=== PATIENT | female | born 1960 | race Caucasian/White ===

== ENCOUNTER → 2018-05-31 12:48 | Outpatient (CLI) | payer OTHER, SELFPAY ==
--- NOTE | 2018-05-31 | DI.MG.S_ITS ---
BILATERAL DIGITAL SCREENING MAMMOGRAM 3D/2D WITH CAD POST LUMPECTOMY: 05/31/2018 CLINICAL: Routine screening. Personal history of breast cancer. Comparison is made to exams dated: 04/15/2017 mammogram, 01/27/2017 mammogram, and 01/20/2017 mammogram - [facility]. The tissue of both breasts is extremely dense, which lowers the sensitivity of mammography. Current study was also evaluated with a Computer Aided Detection (CAD) system. There are post surgical changes with surgical clips in the right breast at 9 o'clock in the middle depth. There are new 0.4 cm grouped punctate calcifications in the right breast middle depth lateral region seen on the craniocaudal view only and noted a short distance posterior to the surgical site. There are new 0.4 cm linear calcifications in the left breast posterior depth lateral region seen on the craniocaudal view only. No other significant masses or calcifications are seen in either breast. IMPRESSION: INCOMPLETE: NEEDS ADDITIONAL IMAGING EVALUATION The new 0.4 cm grouped punctate calcifications in the right breast middle depth lateral region seen on the craniocaudal view only are indeterminate. Mediolateral and spot magnification views are recommended. The new 0.4 cm linear calcifications in the left breast posterior depth lateral region seen on the craniocaudal view only are indeterminate. Mediolateral and spot magnification views are recommended. This exam was interpreted at Station ID: [id number]. NOTE: For mammograms, a report in lay terms will be sent to the patient. Approximately 15% of breast malignancies will not be visualized mammographically. In the management of a palpable breast mass, a negative mammogram must not discourage biopsy of a clinically suspicious lesion. Electronically Signed By: Alex Benavides M.D. aty/:05/31/2018 15:11:50 copy to: SANYA GALLARDO copy to: CHINO HOFFMANN letter sent: Additional Imaging Needed ACR BI-RADS Category 0: Incomplete 3340F
== END ==
PROVIDERS: Family Provider Internal Medicine; PCP Internal Medicine; Visit Provider Internal Medicine Hematology & Oncology
DX: Z12.31 Encounter for screening mammogram for malignant neoplasm of breast (principal); Z85.3 Personal history of malignant neoplasm of breast
CPT/HCPCS: 77063; 77067

== ENCOUNTER → 2018-06-03 12:47 | Outpatient (CLI) | payer OTHER, SELFPAY ==
--- NOTE | 2018-06-03 12:51 | DI.MG.S_ITS ---
BILATERAL DIGITAL DIAGNOSTIC MAMMOGRAM 3D/2D WITH ADDITIONAL VIEWS: 06/03/2018 CLINICAL: Additional evaluation requested from prior study. Comparison is made to exams dated: 05/31/2018 mammogram, 04/15/2017 mammogram, and 03/16/2017 breast [facility]. The tissue of both breasts is extremely dense, which lowers the sensitivity of mammography. There are surgical clips in the right breast at 9 o'clock in the middle depth. There are 0.4 cm grouped punctate calcifications in the right breast middle depth lateral region seen on the craniocaudal view only. These are not significantly changed. There are 0.4 cm grouped linear punctate calcifications in the left breast posterior depth lateral region seen on the craniocaudal view only. These are not significantly changed. No other significant masses or calcifications are seen in either breast. IMPRESSION: PROBABLY BENIGN The 0.4 cm grouped punctate calcifications in the right breast middle depth lateral region seen on the craniocaudal view only are probably benign. A follow-up in 6 months are recommended. The 0.4 cm grouped linear punctate calcifications in the left breast posterior depth lateral region seen on the craniocaudal view only are probably benign. A follow-up in 6 months is recommended. The follow-up bilateral mammogram in 6 months is recommended to demonstrate stability with craniocaudal, mediolateral oblique, mediolateral, and spot magnifications views. This exam was interpreted at Station ID: [id number]. NOTE: For mammograms, a report in lay terms will be sent to the patient. Approximately 15% of breast malignancies will not be visualized mammographically. In the management of a palpable breast mass, a negative mammogram must not discourage biopsy of a clinically suspicious lesion. Electronically Signed By: Alex Benavides M.D. aty/:06/03/2018 17:13:28 copy to: Menedz [place] copy to: CHINO HOFFMANN letter sent: Followup Recommended ACR BI-RADS Category 3: Probably benign [id number]
== END ==
PROVIDERS: Family Provider Internal Medicine; PCP Internal Medicine; Visit Provider Internal Medicine Hematology & Oncology
DX: R92.1 Mammographic calcification found on diagnostic imaging of breast (principal); C50.911 Malignant neoplasm of unspecified site of right female breast
CPT/HCPCS: 77066; G0279

== ENCOUNTER → 2018-06-04 15:40 | Outpatient (CLI) | payer OTHER, SELFPAY ==
[2018-06-04 16:21] LABS: Add Manual Diff / Slide Review NO; Basophils Absolute Auto 0 /uL (0-100); Basophils Percent Auto 0.3 % (0-2); Eosinophils Absolute Auto 0 /uL (0-450); Hematocrit 41.6 % (36-46); Hemoglobin 13.7 g/dL (12.0-16.0); Lymphocytes Absolute Auto 1200 /uL (1100-4500); Lymphocytes Percent Auto 22.2 % (25-40); Mean Corpuscular Volume 84.8 fL (80-100); Monocytes Absolute Auto 400 /uL (0-900); Monocytes Percent Auto 7.6 % (3-14); Neutrophils Absolute Auto 3600 /uL (1500-7000); Neutrophils Percent Auto 68.9 % (50-75); Platelet Count 311 X10^3/uL (150-400); Red Blood Cell Count 4.91 X10^6/uL (4.0-5.2); Red Cell Distribution Width 13.5 % (11.6-14.8); White Blood Cell Count 5.3 X10^3/uL (4.5-11.0)
[2018-06-04 16:59] LABS: Alanine Aminotransferase 25 IU/L (9-52); Albumin 4.9 g/dL (3.5-5.0); Albumin Globulin Ratio 1.9 (1.0-2.8); Alkaline Phosphatase 65 U/L (38-126); Aspartate Aminotransferase 24 IU/L (14-36); Bilirubin Total 0.3 mg/dL (0.2-1.3); Blood Urea Nitrogen 14 mg/dL (7-17); Calcium 9.7 mg/dL (8.4-10.2); Carbon Dioxide 28 mmol/L (22-32); Chloride 101 mmol/L (98-107); Estimated Glomerular Filt Rate > 60.0 mL/min (>60); Globulin 2.6 g/dL (1.7-4.1); Glucose 85 mg/dL (70-100); HEMOLYSIS < 15 (0-50); Potassium 4.4 mmol/L (3.4-5.1); Sodium 139 mmol/L (137-145); Total Protein 7.5 g/dL (6.3-8.2)
== END ==
PROVIDERS: Family Provider Internal Medicine; PCP Internal Medicine; Visit Provider Nurse Practitioner Gerontology
DX: C50.911 Malignant neoplasm of unspecified site of right female breast (principal)
CPT/HCPCS: 36415; 80053; 85025

== ENCOUNTER → 2018-06-22 12:16 | Outpatient (CLI) | payer OTHER, SELFPAY ==
--- NOTE | 2018-06-22 12:18 | DI.MRI.S_ITS ---
BREAST MRI OF BOTH BREASTS: 06/22/2018 CLINICAL: History of right breast cancer status post lumpectomy. PROCEDURE: MR BREAST BI WO/W CON INDICATIONS: Patient is a 58-year-old woman with history of invasive ductal carcinoma of the right breast at 8:00 position anterior depth diagnosed by stereotactic biopsy on 02/04/2017. Subsequent breast MRI of 03/16/2017 demonstrated associated non-mass enhancement in the right breast at 8:00 position anterior depth. Patient subsequently underwent lumpectomy. A bilateral screening mammogram performed on 05/31/2018 reportedly identified 0.4 cm calcifications in the right breast middle depth lateral region and left breast posterior depth lateral region seen on the bilateral craniocaudal views only; these persisted on subsequent additional diagnostic views of 06/03/2018 and a six-month followup was subsequently recommended at that time. TECHNIQUE: The patient was placed prone in a dedicated breast imaging coil. Precontrast axial STIR and 3D FLASH without fat saturation sequences were obtained. Both before and after bolus injection of contrast, sequential 1-minute axial 3D FLASH with fat saturation sequences for 3 time points, with subtraction images and maximum intensity projections (MIP's) generated. Delayed sagittal FLASH images with fat saturation were also obtained. 20 cc of intravenous Prohance contrast was used for this exam. Computer-aided detection, including computer algorithm analysis of MRI image data for lesion detection and characterization, pharmacokinetic analysis, with further physician review for interpretation, was performed. COMPARISON: [facility], , ANKLE W FINDINGS: Image quality: There is severe susceptibility artifact that obscures the upper inner quadrant of the left breast on multiple sequences secondary to the patient's left chest port catheter, which also results in inadequate fat saturation on multiple sequences. There is mild background parenchymal enhancement. Right breast: There are postsurgical changes of prior lumpectomy within the lateral right breast with overlying lateral skin scarring and diffuse right breast skin thickening. Surgical clips within the lumpectomy result in susceptibility artifact that obscures adjacent anatomy. There is mild skin enhancement associated with skin thickening relative to the left breast, likely secondary to prior radiation therapy. There is a 0.4 cm oval circumscribed mass 5:00-6:00 position middle depth approximately 1-2 cm inferior to central to the nipple which demonstrates persistent enhancement kinetics and T2 hyperintensity on STIR imaging, and appears stable in size and appearance to comparison MRI of 04/02/17. This is medially adjacent to the lumpectomy site described above. There is a subtle area of mild [id number] in the central inferior right breast and middle depth near 6:00 position just medial to the lumpectomy site described above, which is difficult to measure but measures approximately 3.0 cm anteroposterior by 2.0 cm transverse by 1.5 cm craniocaudal. This enhancement demonstrates persistent contrast enhancement kinetics, is asymmetric to the left breast, and new from comparison MRI exam of 03/16/17. This area of non-mass enhancement may include the area of calcifications seen on comparison screening mammogram of 05/31/2018 and diagnostic mammogram of 06/03/2018. There is mild retroareolar ductal ectasia with T1 hyperintense signal within the ectatic ducts, consistent with proteinaceous or hemorrhagic debris. Left breast: Susceptibility artifact and failure of fat saturation artifact in the upper inner quadrant of the left breast impairs evaluation of underlying anatomy. Within this context, no suspicious masses or non-mass enhancement are identified. There is no convincing abnormality to correlate with the calcifications seen on comparison screening mammogram of 05/31/2018 and diagnostic mammogram of 06/03/2018. Abnormal signal in the upper inner quadrant of the left breast is thought artifactual. There is mild retroareolar ductal ectasia with T1 hyperintense signal within the ectatic ducts, consistent with proteinaceous or hemorrhagic debris. Miscellaneous: There is no axillary or internal mammary lymphadenopathy bilaterally. IMPRESSION: INCOMPLETE: NEEDS ADDITIONAL IMAGING EVALUATION Susceptibility artifact secondary to the patient's chest port catheter obscures the underlying anatomy of the upper inner left breast. Within this context: 1. Subtle 3.0 x 2.0 x 1.5 cm area of mild non-mass enhancement medially adjacent to the lumpectomy site in the lower right breast. This may represent background physiologic parenchymal enhancement secondary to postsurgical changes from prior lumpectomy and radiation therapy, but is asymmetric and new from prior comparison MRI exam of 03/16/17 and early ductal carcinoma in situ cannot be excluded. Recommend followup targeted diagnostic ultrasound for further evaluation. This area of contrast enhancement may warrant a followup MRI in 6 months or possible biopsy pending ultrasound results. 2. 0.4 cm oval mass in the right breast at 5:00-6:00 position middle depth is stable to comparison MRI of 03/16/17 and likely represents an intramammary lymph node. Consider evaluation of this area on the followup targeted diagnostic ultrasound recommended above. 3. The 0.4 cm calcifications in the right breast middle depth lateral region seen on the craniocaudal view only on recent comparison screening and diagnostic mammograms may be within the area of non-mass enhancement described above. No other area of enhancement is identified to correlate with these calcifications. The calcifications may also be so small as to be below the threshold for MRI detection at this time. The prior recommendation from diagnostic mamogram of 06/03/2018 for a follow-up mammogram in 6 months to demonstrate stability remains in force/recommended. 4. No convincing MRI abnormality to correlate with the 0.4 cm punctate calcifications in the left breast posterior depth lateral region seen on comparison screening mammogram of 05/31/2018 and diagnostic mammogram of 06/03/2018. However, the calcifications may also be too small and below the threshold for MRI detection at this time. The prior recommendation from diagnostic mamogram of 06/03/2018 for a follow-up mammogram in 6 months to demonstrate stability remains in force/recommended. These results and recommendations were discussed with the referring provider Dr. Cristóabl Selby by telephone by Dr. Arevalo at approximately 12:30 pm on 06/24/2018. BIRADS: 0. Incomplete; additional imaging needed/recommended. COMMENT: The imaging literature indicates that a negative contrast breast MRI examination has a high sensitivity and a moderate specificity for detecting and excluding invasive carcinomas to a detection threshold of 3-5 mm; nonetheless, appropriate clinical and mammographic follow-up are recommended. MRI is not sensitive for detecting DCIS (ductal carcinoma in situ) and may not detect large invasive neoplasms that show only minimal enhancement such as mucinous carcinoma. If there are suspicious calcifications or clinically worrisome palpable masses, then biopsy should still be considered. Invasive neoplasms can be hidden by co-existent and benign enhancement caused by mastitis, hormone therapy effects, radiation therapy, , and recent biopsy or surgery. False positive examinations can occur in a number of circumstances, including breasts that have recently been subject to invasive procedures and those that contain atypical ductal hyperplasia, hormonally stimulated glandular tissue, fat necrosis, or radial scars. Electronically Signed By: Franklin Arevalo M.D. ecl/:06/25/2018 11:46:39 copy to: Mendez [place] copy to: CHINO HOFFMANN letter sent: Additional Imaging Needed ACR BI-RADS Category 0: Incomplete [id number]
== END ==
PROVIDERS: PCP Internal Medicine; Visit Provider Internal Medicine Hematology & Oncology
DX: R92.8 Other abnormal and inconclusive findings on diagnostic imaging of breast (principal); R92.1 Mammographic calcification found on diagnostic imaging of breast; C50.511 Malignant neoplasm of lower-outer quadrant of right female breast; N63.14 Unspecified lump in the right breast, lower inner quadrant
CPT/HCPCS: 77049; A9579

== ENCOUNTER → 2018-06-30 07:41 | Outpatient (CLI) | payer OTHER, SELFPAY ==
--- NOTE | 2018-06-30 07:42 | DI.US.S_ITS ---
LIMITED ULTRASOUND OF RIGHT BREAST: 06/30/2018 CLINICAL: Patient returns today to evaluate abnormalities in the right breast found on MRI. Comparison is made to exams dated: 06/22/2018 breast MRI, 06/03/2018 mammogram, 05/31/2018 mammogram, 04/15/2017 localization, 04/15/2017 mammogram, and 03/16/2017 breast MRI - [facility]. Real-time and Doppler ultrasound of the right breast retroareolar, lower inner, upper outer, and and lower outer quadrants regions were performed. Nuñez scale images of the real-time examination were reviewed. Targeted ultrasound of the retroareolar, upper outer, lower outer, and lower inner right breast were performed. There is postsurgical scarring of the lower outer right breast with a 3 mm calcification identified. There is no abnormal vascularity of the scar tissue on Doppler ultrasound. There is no other underlying mass or abnormality seen in the imaged regions on targeted ultrasound. Specifically, there is no ultrasound correlate for the non-mass enhancement in the lower right breast and no correlate for the 0.4 cm oval mass in the right breast at 5:00-6:00 position described in the comparison MRI report of 06/22/18, and no ultrasound correlate for the calcifications in the lateral right breast seen on comparison mammograms of 05/31/2018 and 06/03/2018. IMPRESSION: PROBABLY BENIGN 1) No suspicious masses or abnormalities seen on ultrasound of the retroareolar, upper outer, lower outer, and lower inner right breast. 2) No ultrasound correlate for the non-mass enhancement in the lower right breast described in the comparison MRI report of 06/22/18. This non-mass enhancement likely represents post-surgical and post-therapeutic changes from prior lumpectomy and radiation therapy, with possible residual malignancy thought less likely. A follow-up breast MRI in 6 months is recommended to demonstrate stability. 3) No correlate for the 0.4 cm oval mass in the right breast at 5:00-6:00 position described in the comparison MRI report of 06/22/18 but which was stable to comparison MRI of 03/16/17 and likely represents an intramammary lymph node. 4) No ultrasound correlate for the punctate calcifications in the lateral right breast seen on comparison mammograms of 05/31/2018 and 06/03/2018. The prior recommendation from diagnostic mammogram of 06/03/2018 for a follow-up diagnostic mammogram in 6 months to demonstrate stability remains recommended. These results and recommendations were discussed with the patient at the time of the exam by Dr. Arevalo in person. The patient was advised to monitor her breasts and to return sooner for re-evaluation should she feel anything grow or change. This exam was interpreted at Station ID: [id number]. Electronically Signed By: Franklin Arevalo M.D. ecl/:06/30/2018 15:16:30 copy to: Mendez [place] copy to: CHINO HOFFMANN letter sent: Followup Recommended Ultrasound BI-RADS: 3 Probably benign
== END ==
PROVIDERS: Family Provider Internal Medicine; PCP Internal Medicine; Visit Provider Internal Medicine Hematology & Oncology
DX: R92.8 Other abnormal and inconclusive findings on diagnostic imaging of breast (principal)
CPT/HCPCS: 76642

== ENCOUNTER 2018-07-08 06:46 | Day surgery (SDC) | payer OTHER, SELFPAY ==
[2018-07-08] VITALS (7 sets, daily range): BP systolic 104–135; BP diastolic 54–80; PULSE 70–101; RESP 7–20; TEMP 36.4–37; O2SAT 95–99; BMI 21.7
[2018-07-08] MEDS: SODIUM CHLORIDE 0.9% 1,000 ML 100 ML IV (07:15)
[2018-07-08] MEDS: SCOPOLAMINE 1 PATCH TOP (08:20)
[2018-07-08] MEDS: ONDANSETRON 4 MG/2 ML INJ IV (08:25)
--- NOTE | 2018-07-08 08:32 | PM.HP.1 ---
History of Present Illness Date Patient Seen: 07/08/18 Time Patient Seen: 08:32 Chief complaint: colonoscopy [id number] Narrative: Wonderful 58-year-old lady who is well known to me from prior visits. She presents today for screening colonoscopy. She has recently completed treatment for invasive breast cancer. It has been approximately 10 years since her last colonoscopy. She denies any new problems or symptoms related to the function of her GI tract. She needs a colonoscopy as part of her health maintenance program. Patient History Medical History Anxiety (Acute) Chronic neck and back pain (Acute) Osteoporosis (Acute) PTSD (post-traumatic stress disorder) (Acute) Peripheral neuropathy (Acute) Port-A-Cath in place (Acute) Vitamin D deficiency (Acute) Surgical History History of lumpectomy of right breast (Acute) History of partial mastectomy of right breast (Acute) Social History household members: spouse Smoking Status: Never smoker alcohol intake: current Family & Social History Social History: household members spouse Tobacco & Substance use: Smoking Status Never smoker alcohol intake current Substance Use Type does not use Meds Home Medications Medication Instructions Recorded Confirmed Type cholecalciferol (vitamin D3) 1 tab PO QDAY #0 02/20/17 07/08/18 History [Vitamin D3] venlafaxine [Effexor XR] 75 mg PO QDAY #0 03/13/17 07/08/18 History alendronate [Fosamax] 70 mg PO QWEEK 11/12/17 07/08/18 History letrozole [Femara] See Rx Instructions .ROUTE .COMPLEX 11/12/17 07/08/18 History Darell/Calcium 1 cap PO DAILY 06/04/18 07/08/18 History Tumeric 1 cap PO BID 06/04/18 07/08/18 History Allergies Allergy/AdvReac Type Severity Reaction Status Date / Time No Known Drug Allergies Allergy Verified 07/08/18 07:20 Review of Systems Review of Systems All systems reviewed & are unremarkable except as noted in HPI and below Exam Vital Signs (past 8 hours): - 07/08/18 07:24 Temperature 98.2 F Pulse Rate 101 H Respiratory Rate 20 Blood Pressure 135/80 Pulse Oximetry 99 Oxygen Delivery Method Room Air Narrative Exam Narrative: Very pleasant well-nourished well-developed lady in no obvious distress HEENT: Normocephalic and atraumatic, pupils equal round reactive to light accommodation with anicteric sclera Lungs: Clear to auscultation bilaterally Heart: Regular rate and rhythm without murmur rub or gallop Abdomen: Soft, nontender, active bowel sounds Extremities: Warm and well perfused without edema Assessment & Plan Assessment & Plan narrative: Wonderful 58-year-old lady here for screening colonoscopy. We discussed risks and benefits of the procedure the patient expressed a desire to complete it today.
[2018-07-08] MEDS: MIDAZOLAM 5 MG/5 ML VIAL IV (08:48)
[2018-07-08] MEDS: fentaNYL 250 MCG/5 ML INJ IV (08:49)
--- NOTE | 2018-07-08 09:01 | P.OP_ITS ---
Operative Date/Time/Diagnoses Date of procedure: 07/08/18 Time of procedure: 08:57 Pre-op diagnosis: Screening Post-op diagnosis: same Procedure & Clinicians Procedure: Colonoscopy to the cecum Same procedure as scheduled: Yes Indications: Last colonoscopy 10 years ago Surgeon: Nichole Borrego Click Yes if Unassisted: Yes Anesthesia Type: Sedation (Versed 10 mg; fentanyl 350 mcg) Operative Notes Findings: 1. Excellent prep 2. No polyps or mass lesions 3. No AV malformations 4. Very minimal diverticulosis with just a couple of very small pockets in the sigmoid region 5. Grade 1-2 internal hemorrhoids 6. Normal colonoscopy for age Closure Type: not applicable Specimen(s): none sent Procedure in detail: After obtaining informed consent, the patient was brought to the GI suite and placed in the left lateral decubitus position on the examination table. After placement of appropriate monitors, the patient was given incremental doses of Versed and Fentanyl until an appropriate level of sedation was achieved. A time out was held per SCOAP protocol. A digital rectal examination was performed and did not reveal any masses or obstructing lesions. The colonoscope was gently passed into the patient's anus and the entire colon navigated to the level of the cecum with minimal difficulty . Once in the cecum, the scope was withdrawn being sure to go before and beyond all mucosal folds and prominences and get an excellent examination. The findings are noted above. At the level of the rectal vault, the scope was retroflexed and the internal anal canal was examined. The scope was straightened and air aspirated from the colon. The instrument was removed from the patient's body and the procedure was concluded. The patient was allowed to awaken from sedation without difficulty and taken to the post-anesthesia care unit in good condition. Total sedation time was 24 min Total withdrawal time was 8 min Complications: none Condition: stable Disposition: PACU Plan for aftercare: 1. Discharge to home 2. Plan for next colonoscopy in 10 years or as clinically indicated
--- NOTE | 2018-07-08 09:06 | SUR.PHASEI ---
Stable pacu stay.
--- NOTE | 2018-07-08 09:11 | SUR.PHASEI ---
No nausea, taking ice and sips of water.
== END 2018-07-08 09:38 | disposition home or self-care (01) ==
PROVIDERS: Family Provider Internal Medicine; PCP Internal Medicine; Visit Provider Surgery
PROC: 0DJD8ZZ Inspection of Lower Intestinal Tract, Via Natural or Artificial Opening Endoscopic (ICD-10-PCS; CPT 45378; principal; 2018-07-08 07:45)
DX: Z12.11 Encounter for screening for malignant neoplasm of colon (principal); K57.30 Diverticulosis of large intestine without perforation or abscess without bleeding; K64.1 Second degree hemorrhoids; F41.9 Anxiety disorder, unspecified; G62.9 Polyneuropathy, unspecified; E55.9 Vitamin D deficiency, unspecified
CPT/HCPCS: 45378; 99152; 99153; J2250; J2405; J3010

== ENCOUNTER 2018-07-28 06:43 | Day surgery (SDC) | payer OTHER, SELFPAY ==
[2018-06-07 12:20] VITALS: BMI 24.0
[2018-07-28] VITALS (8 sets, daily range): BP systolic 88–143; BP diastolic 49–82; PULSE 61–81; RESP 12–16; TEMP 36.4–36.5; O2SAT 96–100; BMI 24.0
--- NOTE | 2018-07-28 07:41 | SUR.OPER ---
Supine on padded OR bed, head on pillow, arms secured on padded arm boards at <90 degrees abduction, legs uncrossed, safety belt at thigh, tape over blanket over lower legs.
[2018-07-28] MEDS: LACTATED RINGERS 1,000 ML 42 ML IV (07:50)
--- NOTE | 2018-07-28 08:17 | PM.HP.1 ---
History of Present Illness Date Patient Seen: 07/28/18 Time Patient Seen: 08:17 Chief complaint: [id number] Narrative: Qi is a very pleasant lady who presents today for for PowerPort removal. She was diagnosed with breast cancer in 2017 and has completed all of her treatment. Her port is no longer needed. She reports she feels well today. She denies any new problems or symptoms. Patient History Medical History Anxiety (Acute) Chronic neck and back pain (Acute) Osteoporosis (Acute) PTSD (post-traumatic stress disorder) (Acute) Peripheral neuropathy (Acute) Port-A-Cath in place (Acute) Vitamin D deficiency (Acute) Surgical History History of lumpectomy of right breast (Acute) History of partial mastectomy of right breast (Acute) Social History household members: spouse Smoking Status: Never smoker alcohol intake: current Family & Social History Social History: household members spouse Tobacco & Substance use: Smoking Status Never smoker alcohol intake current Substance Use Type does not use Meds Home Medications Medication Instructions Recorded Confirmed Type cholecalciferol (vitamin D3) 1 tab PO QDAY #0 02/20/17 07/08/18 History [Vitamin D3] venlafaxine [Effexor XR] 75 mg PO QDAY #0 03/13/17 07/28/18 History alendronate [Fosamax] 70 mg PO QWEEK 11/12/17 07/28/18 History letrozole [Femara] See Rx Instructions .ROUTE .COMPLEX 11/12/17 07/28/18 History Darell/Calcium 1 cap PO DAILY 06/04/18 07/08/18 History Tumeric 1 cap PO BID 06/04/18 07/08/18 History Allergies Allergy/AdvReac Type Severity Reaction Status Date / Time No Known Drug Allergies Allergy Verified 07/08/18 07:20 Review of Systems Review of Systems All systems reviewed & are unremarkable except as noted in HPI and below Exam Vital Signs (past 8 hours): - 07/28/18 07:21 Temperature 97.5 F L Pulse Rate 81 Respiratory Rate 15 Blood Pressure 143/82 H Pulse Oximetry 100 Oxygen Delivery Method Room Air Narrative Exam Narrative: Pleasant and well-appearing lady in no distress HEENT: Normocephalic and atraumatic, pupils equal round reactive to light accommodation with anicteric sclera Lungs: Clear to auscultation bilaterally Heart: Regular rate and rhythm without murmur rub or gallop. The power port is in the left chest wall and without erythema or drainage of the incision. Abdomen: Soft, nontender, active bowel sounds Extremities: Warm well perfused and without edema Assessment & Plan Assessment & Plan narrative: Wonderful 58-year-old lady who has completed all of her treatment for breast cancer. She continues on Femara and is doing quite well. We discussed the risks and benefits of PowerPort removal and the patient expressed a desire to have the procedure today.
[2018-07-28] MEDS: BUPIVACAINE 0.5% (PF) VIAL 30 ML INJ (08:31)
[2018-07-28] MEDS: LIDOCAINE 1% W/EPI INJ 20 ML INJ (08:31)
--- NOTE | 2018-07-28 08:43 | PM.OP.1 ---
Operative Date/Time/Diagnoses Date of procedure: 07/28/18 Time of procedure: 08:43 Pre-op diagnosis: Port no longer required. Chemotherapy completed Post-op diagnosis: same Procedure & Clinicians Procedure: Power port removal Same procedure as scheduled: Yes Surgeon: Nichole Borrego Anesthesia Type: General (Dr. Cid) Operative Notes Findings: Power port in good repair Closure Type: primary Specimen(s): none sent Procedure in detail: After obtaining informed consent, the patient was brought to the operating room and placed in the supine position on the operating table. Following successful induction of IV sedation with monitored anesthesia care, the chest was prepped and draped in the standard surgical fashion. A timeout was held per WVOAP protocol. Following infiltration with local anesthetic to create a field block, the existing healed incision was repeated. This was carried down through the skin and subcutaneous tissue to reveal the tubing of the implanted central venous device. The tubing was carefully dissected free from surrounding structures and delivered into the field. Pressure was held at the deltopectoral groove to prevent air embolus and backbleeding. After 5 minutes time, we continued with dissection of the remaining portion of the port. The reservoir itself remained in the pocket and has been incorporated into the tissue. This was carefully dissected free with judicious use of a scalpel. It was delivered into the field as a single piece with tubing attached. The incision was checked for hemostasis and irrigated with warm saline solution. Once we were satisfied that all was clean and dry, it was closed in 2 layers with Vicryl Monocryl sutures. Dermabond was applied to the skin incision. All sponge, needle, and instrument counts were correct at the conclusion of the case. The patient was allowed to awaken from sedation without difficulty and taken to the post anesthesia care unit in good condition. Complications: none Condition: stable Disposition: PACU Plan for aftercare: 1. Discharge to home 2. Follow up as previously scheduled
== END 2018-07-28 09:33 ==
LOC: OR 06:44
PROVIDERS: Family Provider Internal Medicine; PCP Internal Medicine; Visit Provider Surgery
PROC: (CPT 36590; principal; 2018-07-28 07:45)
DX: Z45.2 Encounter for adjustment and management of vascular access device (principal); Z85.3 Personal history of malignant neoplasm of breast; F41.9 Anxiety disorder, unspecified; G62.9 Polyneuropathy, unspecified; E55.9 Vitamin D deficiency, unspecified; M81.0 Age-related osteoporosis without current pathological fracture
CPT/HCPCS: 36590; J1100; J2704; J3010

== ENCOUNTER → 2018-11-25 10:21 | Outpatient (CLI) | payer OTHER, SELFPAY ==
--- NOTE | 2018-11-25 | DI.US.S_ITS ---
PROCEDURE: US THYROID INDICATIONS: NONTOXIC MULTINODULAR GOITER TECHNIQUE: Real-time scanning was performed of the thyroid gland, with image documentation. COMPARISON: [facility], US, THYROID, 07/23/2017, 10:24. FINDINGS: Right: Thyroid lobe measures 5.2 x 1.6 x 1.8 cm, and is homogeneous in echotexture. Left: Thyroid lobe measures 5.3 x 1.5 x 2.1 cm, and is homogenous in echotexture. Isthmus: 2.0 mm thick. Nodule number: 1 Location: Right superior Size: Unchanged at 1.0 x 0.6 x 0.8 cm. Composition: Solid Echogenicity: Hypoechoic Shape: wider than tall. Margins: Smooth Echogenic foci: Echogenic punctate foci Total points: 7 ACR TI-RADS category: Highly suspicious Nodule number: 2 Location: Right inferior Size: Unchanged at 0.9 x 0.7 x 0.9 cm. Composition: Solid Echogenicity: Hypoechoic Shape: wider than tall. Margins: Smooth Echogenic foci: Internal punctate foci Total points: 7 ACR TI-RADS category: Highly suspicious Nodule number: 3 Location: Left mid Size: Unchanged 1.5 x 0.5 x 0.5 cm. Composition: Cystic Echogenicity: Anechoic Shape: wider than tall. Margins: Smooth Echogenic foci: None Total points: 0 ACR TI-RADS category: Benign Nodule number: 4 Location: Left mid Size: Unchanged at 0.8 x 0.6 x 0.7 cm. Composition: Solid Echogenicity: Hypoechoic Shape: wider than tall. Margins: Smooth Echogenic foci: None Total points: 4 ACR TI-RADS category: Moderately suspicious IMPRESSION: Stable appearance of bilateral thyroid nodules. Recommend continued followup ultrasound as detailed below. ACR TI-RADS definitions and recommendations: TI-RADS 1 (benign): 0 points. FNA not needed. TI-RADS 2 (not suspicious): 2 points. FNA not needed. TI-RADS 3 (mildly suspicious): 3 points. * FNA if 2.5 cm or larger, follow up if 1.5 cm or larger (at 1, 3, and 5 years). TI-RADS 4 (moderately suspicious): 4-6 points. * FNA if 1.5 cm or larger, follow up if 1 cm or larger (at 1, 2, 3, and 5 years). TI-RADS 5 (highly suspicious): 7 points or more. * FNA if 1 cm or larger, follow up if 0.5 cm or larger (every year for 5 years). Dictated by: Prakash BABB Interpreted: Demarcus León MD on 11/25/2018 at 12:06 Approved by: Demarcus León M.D. on 11/25/2018 at 14:17
== END ==
PROVIDERS: Family Provider Internal Medicine; PCP Internal Medicine; Referring Provider Internal Medicine Hematology & Oncology; Visit Provider Internal Medicine
DX: E04.2 Nontoxic multinodular goiter (principal)
CPT/HCPCS: 76536

== ENCOUNTER 2019-01-11 10:24 | Day surgery (SDC) | payer OTHER, SELFPAY ==
[2019-01-11 10:55] VITALS: BP 127/70; PULSE 88; RESP 15; TEMP 36.7; O2SAT 99; BMI 22.1
[2019-01-11] MEDS: PROPARACAINE 0.5% OPHTH SOL 2 DROPS EYE-OP (11:05)
[2019-01-11] MEDS: CATARACT EYE COMPOUND (10 DROPS/SYRINGE) 3 DROPS EYE-OP (11:08)
--- NOTE | 2019-01-11 12:04 | PM.PREOP ---
Pre-operative Note Interval Note History & Physical reviewed/Exam performed by Physician: No Changes to H&P: No
--- NOTE | 2019-01-11 12:04 | PM.OP.1 ---
Operative Date/Time/Diagnoses Pre-op diagnosis: Nuclear cataract right eye Procedure & Clinicians Procedure: Cataract Surgery Same procedure as scheduled: Yes Surgeon: Cosme Mcelroy Anesthesia Type: MAC +/- and Sedation Operative Notes Procedure in detail: Patient brought to the operating suite. Tetracaine drops placed in the right eye. Patient was prepped and draped in sterile manner. Wire lid speculum was placed in the eye. Betadine drops were placed on the eye. This was irrigated. Lidocaine jelly was placed on the eye. A paracentesis port was created with a side-port blade. 0.1 mL 1% preservative free lidocaine was injected into the anterior chamber. The anterior chamber was deepened with viscoelastic. 2.6 mm keratome was used to create a temporal clear corneal incision. Cystotome and Utrata forceps were used to create continuous tear capsulorrhexis. Balanced salt solution was used to hydro dissect the nucleus. The phacoemulsification handpiece was inserted and the nucleus was removed using the stop and chop technique. The irrigation aspiration handpiece was inserted and the remaining cortex was removed. Anterior chamber was deepened with viscoelastic. An Nixon ZCB00 intraocular lens with a power of 30.0 was injected into the capsular bag. Irrigation aspiration handpiece was inserted and the remaining viscoelastic was removed. Incision was hydrated with balanced salt solution and found to be leak free with pressure with Weck-Rachna sponges. 0.1 mL Vigamox injected anterior chamber. 0.3 mL Kenalog 10 mg was injected subconjunctivally. Lid speculum was removed. The patient left the operating room in excellent condition. Complications: none Post-operative Condition: stable Disposition: same day surgery
[2019-01-11] MEDS: MOXIFLOXACIN INJ 5 MG/ML VIAL EYE-OP (12:18)
[2019-01-11] MEDS: PHENYLEPHRINE/LIDOCAINE VIAL (OR) 0.2 ML EYE-OP (12:18)
[2019-01-11] MEDS: CHONDROIDTIN/SOD HYALURONATE 1.05 ML SYRINGE INTRAOCULA (12:19)
[2019-01-11] MEDS: TRIAMCINOLONE 50 MG/5 ML VIAL INJ (12:19)
[2019-01-11] MEDS: TETRACAINE 0.5% OPHTH DROPS 4 ML 2 DROPS EYE-OP (12:19)
[2019-01-11] MEDS: LIDOCAINE JELLY 2% 5 ML 1 APPLIC TOP (12:19)
[2019-01-11] MEDS: BALANCED SALT IRRIG SOLN NO.2 500 ML, EPINEPHrine 1 MG IRR (12:20)
[2019-01-11 12:35] VITALS: BP 114/75; PULSE 77; RESP 15; TEMP 36.8; O2SAT 99
== END 2019-01-11 12:46 | disposition home or self-care (01) ==
LOC: OR 10:25
PROVIDERS: Family Provider Internal Medicine; PCP Internal Medicine; Visit Provider Ophthalmology
PROC: (CPT 66984; principal; 2019-01-11 12:15)
DX: H25.11 Age-related nuclear cataract, right eye (principal); F41.9 Anxiety disorder, unspecified
CPT/HCPCS: 66984; J0171; J2250; J3010; J3301

== ENCOUNTER 2019-01-25 06:58 | Day surgery (SDC) | payer OTHER, SELFPAY ==
[2019-01-25] MEDS: PROPARACAINE 0.5% OPHTH SOL 2 DROPS EYE-OP (07:38)
[2019-01-25] MEDS: CATARACT EYE COMPOUND (10 DROPS/SYRINGE) 3 DROPS EYE-OP ×3 (07:39→07:55)
[2019-01-25 07:46] VITALS: BP 120/73; PULSE 77; RESP 16; TEMP 36.6; O2SAT 98; BMI 22.1
--- NOTE | 2019-01-25 07:59 | PM.PREOP ---
Pre-operative Note Interval Note History & Physical reviewed/Exam performed by Physician: No Changes to H&P: No
--- NOTE | 2019-01-25 07:59 | PM.OP.1 ---
Operative Date/Time/Diagnoses Pre-op diagnosis: Nuclear Cataract Left eye Post-op diagnosis: same Procedure & Clinicians Surgeon: Cosme Mcelroy Anesthesia Type: MAC +/- and Sedation Operative Notes Procedure in detail: Patient brought to the operating suite. Tetracaine drops placed in the left eye. Patient was prepped and draped in sterile manner. Wire lid speculum was placed in the eye. Betadine drops were placed on the eye. This was irrigated. Lidocaine jelly was placed on the eye. A paracentesis port was created with a side-port blade. 0.1 mL 1% preservative free lidocaine was injected into the anterior chamber. The anterior chamber was deepened with viscoelastic. 2.6 mm keratome was used to create a temporal clear corneal incision. Cystotome and Utrata forceps were used to create continuous tear capsulorrhexis. Balanced salt solution was used to hydro dissect the nucleus. The phacoemulsification handpiece was inserted and the nucleus was removed using the stop and chop technique. The irrigation aspiration handpiece was inserted and the remaining cortex was removed. Anterior chamber was deepened with viscoelastic. An Nixon ZCB00 intraocular lens with a power of 29.5 was injected into the capsular bag. Irrigation aspiration handpiece was inserted and the remaining viscoelastic was removed. Incision was hydrated with balanced salt solution and found to be leak free with pressure with Weck-Rachna sponges. 0.1 mL Vigamox injected anterior chamber. 0.3 mL Kenalog 10 mg was injected subconjunctivally. Lid speculum was removed. The patient left the operating room in excellent condition. Complications: none Post-operative Condition: stable Disposition: same day surgery
[2019-01-25] MEDS: MOXIFLOXACIN INJ 5 MG/ML VIAL EYE-OP (08:13)
[2019-01-25] MEDS: BALANCED SALT IRRIG SOLN NO.2 500 ML, EPINEPHrine 1 MG IRR (08:14)
[2019-01-25] MEDS: TETRACAINE 0.5% OPHTH DROPS 4 ML 2 DROPS EYE-OP (08:14)
[2019-01-25] MEDS: CHONDROIDTIN/SOD HYALURONATE 1.05 ML SYRINGE INTRAOCULA (08:14)
[2019-01-25] MEDS: LIDOCAINE JELLY 2% 5 ML 1 APPLIC TOP (08:14)
[2019-01-25] MEDS: TRIAMCINOLONE 50 MG/5 ML VIAL INJ (08:14)
[2019-01-25] MEDS: PHENYLEPHRINE/LIDOCAINE VIAL (OR) 0.2 ML EYE-OP (08:15)
[2019-01-25 08:25] VITALS: BP 118/69; PULSE 70; RESP 12; TEMP 37; O2SAT 99
== END 2019-01-25 08:35 | disposition home or self-care (01) ==
LOC: OR 06:58
PROVIDERS: Family Provider Internal Medicine; PCP Internal Medicine; Visit Provider Ophthalmology
PROC: (CPT 66984; principal; 2019-01-25 08:15)
DX: H25.12 Age-related nuclear cataract, left eye (principal)
CPT/HCPCS: 66984; J0171; J2250; J3010; J3301

== ENCOUNTER → 2019-02-02 10:14 | Outpatient (CLI) | payer OTHER, SELFPAY | PROVIDERS: PCP Internal Medicine; Visit Provider Internal Medicine | DX: M81.0 Age-related osteoporosis without current pathological fracture (principal); Z78.0 Asymptomatic menopausal state; Z85.3 Personal history of malignant neoplasm of breast | CPT/HCPCS: 77080 ==

== ENCOUNTER → 2019-04-06 14:42 | Outpatient (CLI) | payer OTHER, SELFPAY ==
--- NOTE | 2019-04-06 14:43 | DI.MG.S_ITS ---
BILATERAL DIGITAL DIAGNOSTIC MAMMOGRAM 3D/2D: 04/06/2019 CLINICAL: Patient returns for a 6 month follow up of bilateral breasts. Patient also reports new onset of lateral right breast pain for three weeks without nipple discharge, skin changes, or palpable masses. Comparison is made to exams dated: 06/03/2018 mammogram, 04/15/2017 mammogram, and 01/20/2017 mammogram - [facility]. The tissue of both breasts is extremely dense, which lowers the sensitivity of mammography. There are surgical clips in the right breast at 9 o'clock in the middle depth. There are 0.4 cm grouped punctate calcifications in the right breast middle depth lateral region seen on the craniocaudal view only. These are less prominent. There are 0.4 cm grouped linear punctate calcifications in the left breast posterior depth lateral region seen on the craniocaudal view only. These are less prominent. No other significant masses or calcifications are seen in either breast. IMPRESSION: INCOMPLETE: NEEDS ADDITIONAL IMAGING EVALUATION The 0.4 cm grouped punctate calcifications in the right breast middle depth lateral region seen on the craniocaudal view only are probably benign. A follow-up in 6 months is recommended to document continued stability. The 0.4 cm grouped linear punctate calcifications in the left breast posterior depth lateral region seen on the craniocaudal view only are probably benign. A follow-up in 6 months is recommended to document continued stability. There is no abnormality seen in the right breast to correspond with the area of clinical concern and pain, however, ultrasound is recommended. This will be scheduled for a later date as an ultrasound appointment could not be performed today. Additionally, the patient is now due for follow up breast MRI for previously described subtle area of non-mass enhancement medial to lumpectomy site in the lower right breast and 4mm oval mass in the lower right breast 5-6 o'clock position middle depth, both of which had no sonographic correlate. This exam was interpreted at Station ID: [id number]. NOTE: For mammograms, a report in lay terms will be sent to the patient. Approximately 15% of breast malignancies will not be visualized mammographically. In the management of a palpable breast mass, a negative mammogram must not discourage biopsy of a clinically suspicious lesion. Electronically Signed By: Alex brooksy/:04/07/2019 09:40:35 Entry: chuck - 04/07/2019 09:40:35 copy to: Mendez [place] copy to: CHINO HOFFMANN letter sent: Need Ultrasound ACR BI-RADS Category 0: Incomplete 3340F
== END ==
PROVIDERS: PCP Internal Medicine; Visit Provider Internal Medicine Hematology & Oncology
DX: R92.8 Other abnormal and inconclusive findings on diagnostic imaging of breast (principal); R92.1 Mammographic calcification found on diagnostic imaging of breast; C50.911 Malignant neoplasm of unspecified site of right female breast; N64.4 Mastodynia
CPT/HCPCS: 77066; G0279

== ENCOUNTER → 2019-04-21 14:06 | Outpatient (CLI) | payer OTHER, SELFPAY ==
--- NOTE | 2019-04-21 14:07 | DI.US.S_ITS ---
LIMITED ULTRASOUND OF RIGHT BREAST: 04/21/2019 CLINICAL: Focal lateral right breast pain. Comparison is made to exams dated: 04/06/2019 mammogram, 06/30/2018 ultrasound, 06/22/2018 breast MRI, 06/03/2018 mammogram, 05/31/2018 mammogram, and 04/15/2017 [facility]. Color flow and real-time ultrasound of the right breast 12-9 o'clock region were performed. Nuñez scale images of the real-time examination were reviewed. Targeted ultrasound was performed in the region of the patient's reported focal lateral right breast pain. No underlying breast mass or abnormality is identified. There is redemonstrated avascular postsurgical scarring of the inferior right breast greatest near the 8:00 position, which remains stable in appearance to prior comparison ultrasound of 06/30/18. IMPRESSION: PROBABLY BENIGN 1) No ultrasound findings to explain patient's reported focal lateral right breast pain. Recommend clinical follow-up for further evaluation and management of the patient's reported symptoms. 2) Redemonstrated avascular postsurgical scarring of the inferior right breast greatest near the 8:00 position, which remains stable in appearance to prior comparison ultrasound of 06/30/18. 3) Please see seperately dictated diagnostic mammogram report of 04/06/19 and breast MRI report of 06/22/18 for mammography and MRI follow-up recommendations, which remain recommended. The patient is also advised to monitor her breasts and to return sooner for re-evaluation should she feel anything grow or change. This exam was interpreted at Station ID: [id number]. Electronically Signed By: Franklin Arevalo M.D. ecl/:04/21/2019 19:48:21 copy to: Mendez [place] copy to: CHINO HOFFMANN letter sent: Followup Recommended Ultrasound BI-RADS: 3 Probably benign
== END ==
PROVIDERS: PCP Internal Medicine; Visit Provider Internal Medicine Hematology & Oncology
DX: R92.8 Other abnormal and inconclusive findings on diagnostic imaging of breast (principal); N64.4 Mastodynia; C50.911 Malignant neoplasm of unspecified site of right female breast
CPT/HCPCS: 76642

== ENCOUNTER → 2019-05-30 10:29 | Outpatient (CLI) | payer OTHER, SELFPAY ==
[2019-05-30 11:40] LABS: Blood Urea Nitrogen 14 mg/dL (7-17); Estimated Glomerular Filt Rate > 60.0 mL/min (>60)
== END ==
PROVIDERS: PCP Internal Medicine; Visit Provider Internal Medicine
DX: M61.00 Myositis ossificans traumatica, unspecified site (principal)
CPT/HCPCS: 36415; 82565; 84520

== ENCOUNTER → 2019-06-28 09:13 | Outpatient (CLI) | payer OTHER, SELFPAY ==
[2019-06-28 09:31] VITALS: BP 139/79; PULSE 82; RESP 16; TEMP 36.8; O2SAT 96
[2019-06-28] MEDS: ZOLEDRONIC ACID 5 MG in SODIUM CHLORIDE 0.9% 100 ML 318.75 ML IV (09:37)
== END ==
PROVIDERS: PCP Internal Medicine; Referring Provider Internal Medicine; Visit Provider Internal Medicine
DX: M81.0 Age-related osteoporosis without current pathological fracture (principal)
CPT/HCPCS: 96365; J3489

== ENCOUNTER → 2019-07-25 13:41 | Outpatient (CLI) | payer OTHER, SELFPAY ==
--- NOTE | 2019-07-25 13:42 | DI.MRI.S_ITS ---
BREAST MRI OF BOTH BREASTS- POST LUMPECTOMY: 07/25/2019 CLINICAL: Right breast cancer. PROCEDURE: MR BREAST BI WO/W CON INDICATIONS: breast cancer, abnormal breast MRI 06/2018 TECHNIQUE: The patient was placed prone in a dedicated breast imaging coil. Precontrast axial STIR and 3D FLASH without fat saturation sequences were obtained. Both before and after bolus injection of contrast, sequential 1-minute axial 3D FLASH with fat saturation sequences for 3 time points, with subtraction images and maximum intensity projections (MIP's) generated. Delayed sagittal FLASH images with fat saturation were also obtained. Computer-aided detection, including computer algorithm analysis of MRI image data for lesion detection and characterization, pharmacokinetic analysis, with further physician review for interpretation, was performed. CONTRAST: 20 cc IV Dotarem gadolinium contrast. COMPARISON: [facility], , BILATERAL BREAST W FINDINGS: Image quality: Excellent. There is mild background parenchymal enhancement. Right breast: Susceptibility artifact related to multiple surgical clips in the right anterolateral breast and right axilla. Subtle enhancement medial to the surgical clips in the right inferior lateral breast is less conspicuous compared to MRI 06/22/2018, (7/41). This appears more linear in configuration on the sagittal projection, (18/61). Benign kinetic curve. Enhancing focus medial to the surgical clips in the right inferior lateral breast middle depth is less conspicuous, (7/42). This is not significantly changed compared to 03/16/2017 suggesting a benign etiology such as an intramammary lymph node. Benign kinetic curve. Left breast: No mass or suspicious enhancement. Miscellaneous: No enlarged lymph nodes. IMPRESSION: PROBABLY BENIGN 1. Right breast: Subtle minimal enhancement medial to the surgical clips in the right inferior lateral breast middle depth is less conspicuous. Favor the sequelae of prior treatment rather than recurrent cancer. -Recommend breast MRI in one year to demonstrate 2 years long-term stability. 2. Left breast: No mass or suspicious enhancement. 3. No suspicious lymph nodes. BIRADS 3, probably benign. Note: Recommend continued follow-up diagnostic mammogram in October 2019 for the probably benign calcifications in each breast. COMMENT: The imaging literature indicates that a negative contrast breast MRI examination has a high sensitivity and a moderate specificity for detecting and excluding invasive carcinomas to a detection threshold of 3-5 mm; nonetheless, appropriate clinical and mammographic follow-up are recommended. MRI is not sensitive for detecting DCIS (ductal carcinoma in situ) and may not detect large invasive neoplasms that show only minimal enhancement such as mucinous carcinoma. If there are suspicious calcifications or clinically worrisome palpable masses, then biopsy should still be considered. Invasive neoplasms can be hidden by co-existent and benign enhancement caused by mastitis, hormone therapy effects, radiation therapy, , and recent biopsy or surgery. False positive examinations can occur in a number of circumstances, including breasts that have recently been subject to invasive procedures and those that contain atypical ductal hyperplasia, hormonally stimulated glandular tissue, fat necrosis, or radial scars. Dictated by: Maurisio Faulkner M.D. on 07/25/2019 at 19:32 This exam was interpreted at Station ID: [id number]. Electronically Signed By: Maurisio Faulkner M.D. slc/:07/25/2019 20:23:14 copy to: Mendez [place] copy to: CHINO HOFFMANN letter sent: Followup Recommended ACR BI-RADS Category 3: Probably benign 3343F
== END ==
PROVIDERS: PCP Internal Medicine; Referring Provider Internal Medicine Hematology & Oncology; Visit Provider Internal Medicine Hematology & Oncology
DX: R92.8 Other abnormal and inconclusive findings on diagnostic imaging of breast (principal); C50.911 Malignant neoplasm of unspecified site of right female breast
CPT/HCPCS: 77049; A9579

== ENCOUNTER → 2020-01-18 10:30 | Outpatient (CLI) | payer OTHER, SELFPAY ==
--- NOTE | 2020-01-18 | DI.RAD.S_ITS ---
PROCEDURE: XR THORACIC SPINE 3V INDICATIONS: ACUTE PAIN OF LEFT SHOULDER AFTER SLEEPING WRONG TECHNIQUE: 3 views of the thoracic spine were acquired. COMPARISON: [facility], , THORACIC SPINE 3 VIEWS, 02/26/2017, 9:46. FINDINGS: Bones: No fractures or dislocations. No suspicious bony lesions. Twelve pairs of ribs are noted, and appear intact where visualized. Soft tissues: No paravertebral stripe thickening. IMPRESSION: Mild degenerative disc disease along the thoracic spine but no compression fracture or subluxation is present. Dictated by: Demarcus León M.D. on 01/18/2020 at 12:39 Approved by: Demarcus León M.D. on 01/18/2020 at 12:56
== END ==
PROVIDERS: PCP Internal Medicine; Referring Provider Internal Medicine; Visit Provider Internal Medicine
DX: M25.512 Pain in left shoulder (principal); M51.34 Other intervertebral disc degeneration, thoracic region
CPT/HCPCS: 72072

== ENCOUNTER → 2020-02-16 13:30 | Outpatient (CLI) | payer OTHER, SELFPAY ==
--- NOTE | 2020-02-16 13:32 | DI.MG.S_ITS ---
BILATERAL DIGITAL DIAGNOSTIC MAMMOGRAM 3D/2D SHORT-TERM FOLLOW-UP POST LUMPECTOMY: 02/16/2020 CLINICAL: Short term follow up for bilateral breasts. Comparison is made to exams dated: 07/25/2019 breast MRI, 04/06/2019 mammogram, and 06/03/2018 mammogram - [facility]. The tissue of both breasts is extremely dense, which lowers the sensitivity of mammography. There are stable grouped fine calcifications in the right breast middle depth lateral region seen on the craniocaudal view only. There is a post-surgical scar associated with the calcifications. There are grouped fine calcifications in the left breast posterior depth lateral region seen on the craniocaudal view only. These are less prominent. No other significant masses or calcifications are seen in either breast. IMPRESSION: PROBABLY BENIGN The stable grouped fine calcifications in the right breast middle depth lateral region seen on the craniocaudal view only are probably benign. A follow-up mammogram in 6 months is recommended to demonstrate 2 year stability. The grouped fine calcifications in the left breast posterior depth lateral region seen on the craniocaudal view only are probably benign. A follow-up mammogram in 6 months is recommended to demonstrate 2 year stability. A follow-up mammogram in 6 months is recommended to demonstrate stability. This exam was interpreted at Station ID: [id number]. NOTE: For mammograms, a report in lay terms will be sent to the patient. Approximately 15% of breast malignancies will not be visualized mammographically. In the management of a palpable breast mass, a negative mammogram must not discourage biopsy of a clinically suspicious lesion. Electronically Signed By: Alli ling/:02/16/2020 14:56:44 copy to: Mendez [place] copy to: CHINO HOFFMANN letter sent: Followup Recommended ACR BI-RADS Category 3: Probably benign 3343F
[2020-02-16 14:57] LABS: Add Manual Diff / Slide Review NO; Basophils Absolute Auto 0 /uL (0-100); Basophils Percent Auto 0.3 % (0-2); Eosinophils Absolute Auto 0 /uL (0-450); Eosinophils Percent Auto 0.8 % (2-4); Hematocrit 41.5 % (36-46); Hemoglobin 13.7 g/dL (12.0-16.0); Lymphocytes Absolute Auto 1000 /uL (1100-4500); Lymphocytes Percent Auto 16.9 % (25-40); Mean Corpuscular HGB Conc 32.9 % (30-36); Mean Corpuscular Hemoglobin 27.6 PG (26-34); Mean Corpuscular Volume 83.8 fL (80-100); Monocytes Absolute Auto 400 /uL (0-900); Monocytes Percent Auto 6.3 % (3-14); Neutrophils Absolute Auto 4600 /uL (1500-7000); Neutrophils Percent Auto 75.7 % (50-75); Platelet Count 358 X10^3/uL (150-400); Red Blood Cell Count 4.95 X10^6/uL (4.0-5.2); Red Cell Distribution Width 14.1 % (11.6-14.8)
[2020-02-16 15:10] LABS: Alanine Aminotransferase 22 IU/L (<35); Albumin 4.7 g/dL (3.5-5.0); Albumin Globulin Ratio 1.6 (1.0-2.8); Alkaline Phosphatase 65 U/L (38-126); Aspartate Aminotransferase 28 IU/L (14-36); BUN Creatinine Ratio 18.8 (6-22); Bilirubin Total 0.5 mg/dL (0.2-1.3); Blood Urea Nitrogen 13 mg/dL (7-17); Calcium 9.3 mg/dL (8.4-10.2); Carbon Dioxide 30 mmol/L (22-32); Chloride 102 mmol/L (98-107); Estimated Glomerular Filt Rate > 60.0 mL/min (>60); Glucose 106 mg/dL (80-110); HEMOLYSIS < 15 (0-50); Sodium 138 mmol/L (137-145); Total Protein 7.7 g/dL (6.3-8.2)
== END ==
PROVIDERS: PCP Internal Medicine; Referring Provider Internal Medicine Hematology & Oncology; Visit Provider Internal Medicine
DX: R92.8 Other abnormal and inconclusive findings on diagnostic imaging of breast (principal); R92.1 Mammographic calcification found on diagnostic imaging of breast; C50.911 Malignant neoplasm of unspecified site of right female breast
CPT/HCPCS: 36415; 77066; 80053; 85025; G0279

== ENCOUNTER → 2020-03-22 14:42 | Outpatient (ROUT) | payer OTHER, SELFPAY ==
[2020-03-22 15:08] LABS: Cholesterol 205 mg/dL (140-199); HDL Cholesterol 61 mg/dL (40-60); LDL Cholesterol Calculated 123 mg/dL (<100); Triglycerides 103 mg/dL (35-150)
== END ==
PROVIDERS: PCP Internal Medicine; Visit Provider Internal Medicine
DX: E78.2 Mixed hyperlipidemia (principal)
CPT/HCPCS: 80061

== ENCOUNTER → 2020-06-07 15:07 | Outpatient (ROUT) | payer OTHER, SELFPAY ==
[2020-06-07 15:49] LABS: BUN Creatinine Ratio 26.2 (6-22); Blood Urea Nitrogen 17 mg/dL (7-17); Calcium 9.5 mg/dL (8.4-10.2); Carbon Dioxide 29 mmol/L (22-32); Chloride 105 mmol/L (98-107); Estimated Glomerular Filt Rate > 60.0 mL/min (>60); Glucose 96 mg/dL (80-110); HEMOLYSIS < 15 (0-50); Potassium 4.5 mmol/L (3.4-5.1); Sodium 137 mmol/L (137-145)
== END ==
PROVIDERS: PCP Internal Medicine; Visit Provider Internal Medicine
DX: M81.0 Age-related osteoporosis without current pathological fracture (principal)
CPT/HCPCS: 80048

== ENCOUNTER → 2020-08-02 08:47 | Outpatient (CLI) | payer OTHER, SELFPAY ==
--- NOTE | 2020-08-02 08:49 | DI.MG.S_ITS ---
BILATERAL DIGITAL DIAGNOSTIC MAMMOGRAM 3D/2D SHORT-TERM FOLLOW-UP POST LUMPECTOMY: 08/02/2020 CLINICAL: Short term follow up for bilateral breasts. Comparison is made to exams dated: 02/16/2020 mammogram, 07/25/2019 breast MRI, and 04/06/2019 mammogram - [facility]. The tissue of both breasts is extremely dense, which lowers the sensitivity of mammography. There are stable benign grouped fine calcifications in the right breast middle depth lateral region. There is a post-surgical scar associated with the calcifications. There is no change in the number or appearance of grouped fine calcifications in the left breast posterior depth lateral region. No other significant masses or calcifications are seen in either breast. IMPRESSION: BENIGN There is no mammographic evidence of malignancy. Return to annual mammogram screening schedule is recommended. The patient is also due for a follow-up MRI which was previously recommended (see 07/22/2019 report). This should be obtained as soon as feasible. This exam was interpreted at Station ID: [id number]. NOTE: For mammograms, a report in lay terms will be sent to the patient. Approximately 15% of breast malignancies will not be visualized mammographically. In the management of a palpable breast mass, a negative mammogram must not discourage biopsy of a clinically suspicious lesion. Electronically Signed By: Mina Mcnulty M.D. jr/:08/03/2020 10:02:18 copy to: Mendez [place] copy to: CHINO HOFFMANN letter sent: Normal Exam ACR BI-RADS Category 2: Benign Finding(s) 3342F
== END ==
PROVIDERS: PCP Internal Medicine; Referring Provider Internal Medicine Hematology & Oncology; Visit Provider Internal Medicine Hematology & Oncology
DX: R92.8 Other abnormal and inconclusive findings on diagnostic imaging of breast (principal); Z85.3 Personal history of malignant neoplasm of breast
CPT/HCPCS: 77066; G0279

== ENCOUNTER → 2020-12-04 11:58 | Outpatient (CLI) | payer OTHER, SELFPAY ==
--- NOTE | 2020-12-04 11:59 | DI.MRI.S_ITS ---
BREAST MRI OF BOTH BREASTS: 12/04/2020 CLINICAL: Breast cancer. Comparison is made to exams dated: 08/02/2020 mammogram, 02/16/2020 mammogram, 07/25/2019 breast MRI, 04/06/2019 mammogram, 06/22/2018 breast MRI, and 06/03/2018 mammogram - [facility]. PROCEDURE: MR BREAST BI WO/W CON INDICATIONS: BREAST CANCER TECHNIQUE: The patient was placed prone in a dedicated breast imaging coil. Precontrast axial STIR and 3D FLASH without fat saturation sequences were obtained. Both before and after bolus injection of contrast, sequential 1-minute axial 3D FLASH with fat saturation sequences for 3 time points, with subtraction images and maximum intensity projections (MIP's) generated. Delayed sagittal FLASH images with fat saturation were also obtained. Computer-aided detection, including computer algorithm analysis of MRI image data for lesion detection and characterization, pharmacokinetic analysis, with further physician review for interpretation, was performed. COMPARISON: [facility], MR, MR BREAST BI WO/W CON, 07/25/2019, 13:49. FINDINGS: Image quality: Excellent. There is mild background parenchymal enhancement. Right breast: The lateral right breast middle depth has susceptibility artifact consistent with multiple surgical clips. Subtle enhancement medial to the surgical clips with a 3mm focus is unchanged and is likely in part due to metallic artifact. No evidence of recurrence neoplasm. Dynamic images demonstrate a benign kinetic curve. There is no abnormal focus, mass, or abnormal enhancement. No axillary or internal mammary chain adenopathy. Left breast: Prominent ducts containing proteinaceous material are unchanged compared to the prior MRI. There is no abnormal focus, mass, or abnormal enhancement. No axillary or internal mammary chain adenopathy. IMPRESSION: BENIGN 1. Postoperative changes in the right breast with no evidence of recurrent neoplasm. 2. No mass or suspicious enhancement in the left breast. Recommend continued annual mammography. This exam was interpreted at Station ID: [id number]. Electronically Signed By: Juanjo Estrada acr/:12/04/2020 15:23:57 Entry: - 12/05/2020 07:17:50 copy to: Mendez [place] copy to: CHINO HOFFMANN ACR BI-RADS Category 2: Benign Finding(s) 3342F
== END ==
PROVIDERS: PCP Internal Medicine; Referring Provider Internal Medicine Hematology & Oncology; Visit Provider Internal Medicine Hematology & Oncology
DX: C50.911 Malignant neoplasm of unspecified site of right female breast (principal)
CPT/HCPCS: 77049

== ENCOUNTER → 2021-10-08 09:24 | Outpatient (CLI) | payer OTHER, SELFPAY ==
--- NOTE | 2021-10-08 09:26 | DI.MG.S_ITS ---
BILATERAL DIGITAL SCREENING MAMMOGRAM 3D/2D WITH CAD: 10/08/2021 CLINICAL: Routine screening. Breast cancer. Comparison is made to exams dated: 08/02/2020 mammogram, 04/06/2019 mammogram, 02/16/2020 mammogram, 05/31/2018 mammogram, and 06/03/2018 mammogram - [facility]. The tissue of both breasts is extremely dense, which lowers the sensitivity of mammography. Current study was also evaluated with a Computer Aided Detection (CAD) system. There are benign post operative findings in the right breast. No significant masses, calcifications, or other findings are seen in either breast. There has been no significant interval change. IMPRESSION: BENIGN There is no mammographic evidence of malignancy. A 1 year screening mammogram is recommended. This exam was interpreted at Station ID: [id number]. NOTE: For mammograms, a report in lay terms will be sent to the patient. Approximately 15% of breast malignancies will not be visualized mammographically. In the management of a palpable breast mass, a negative mammogram must not discourage biopsy of a clinically suspicious lesion. Electronically Signed By: Wallace nunez/kari:10/08/2021 10:43:47 copy to: Mendez [place] copy to: CHINO HOFFMANN letter sent: Normal Exam ACR BI-RADS Category 2: Benign Finding(s) 3342F
== END ==
PROVIDERS: PCP Internal Medicine; Referring Provider Internal Medicine; Visit Provider Internal Medicine
DX: Z12.31 Encounter for screening mammogram for malignant neoplasm of breast (principal); C50.911 Malignant neoplasm of unspecified site of right female breast; M81.0 Age-related osteoporosis without current pathological fracture
CPT/HCPCS: 77063; 77067; 77080

== ENCOUNTER → 2021-11-12 11:23 | Outpatient (CLI) | payer OTHER, SELFPAY ==
--- NOTE | 2021-11-12 11:25 | DI.US.S_ITS ---
PROCEDURE: US BREAST RT LIMITED COMPARISON: [facility], BREAST RT LIMITED, 04/21/2019, 14:57. INDICATIONS: right breast palpalble 1 cm mass 0700 and 5 cm from nipple FINDINGS: IMPRESSION: Dictated by: Juanjo Estrada M.D. on 11/12/2021 at 11:45 Approved by: Juanjo Estrada M.D. on 11/12/2021 at 11:48
--- NOTE | 2021-11-12 12:32 | DI.US.S_ITS ---
Indications: Date: 11/12/2021 11:40 At the request of: MIRNA CAMACHO Procedure: US breast RT limited LIMITED ULTRASOUND OF RIGHT BREAST: 11/12/2021 CLINICAL: Palpable right breast lump. No prior exams were available for comparison. Real-time ultrasound of the right breast 7-9 o'clock region was performed. Nuñez scale images of the realtime examination were reviewed. US demostrates a benign appearing scal. No mass. IMPRESSION: BENIGN There is no sonographic evidence of malignancy. Clinical followup is recommended. A 1 year screening mammogram is recommended. Future imaging is recommended as follows: 10/09/2022 screening mammogram. This exam was interpreted at Station ID: [id number]. Electronically Signed By: Juanjo Estrada acr/:11/12/2021 11:48:32 Continued Report - Page 2 of 2 Patient Name: SANDEEP GODINEZ date: 1960 Sex: F Attending Physician: Bal Indications: Date: 11/12/2021 11:40 At the request of: MIRNA CAMACHO Procedure: US breast RT limited copy to: Mendez [place] copy to: CHINO HOFFMANN letter sent: Normal Exam Ultrasound BI-RADS: 2 Benign
== END ==
PROVIDERS: PCP Internal Medicine; Referring Provider Internal Medicine Hematology & Oncology; Visit Provider Internal Medicine Hematology & Oncology
DX: N63.13 Unspecified lump in the right breast, lower outer quadrant (principal); C50.911 Malignant neoplasm of unspecified site of right female breast; Z17.0 Estrogen receptor positive status [ER+]
CPT/HCPCS: 76642

== ENCOUNTER → 2022-10-28 12:56 | Outpatient (CLI) | payer OTHER, SELFPAY ==
--- NOTE | 2022-10-28 12:59 | DI.US.S_ITS ---
PROCEDURE: US THYROID INDICATIONS: F/U NODULES TECHNIQUE: Real-time scanning was performed of the thyroid gland, with image documentation. COMPARISON: [facility], US, US THYROID, 11/25/2018, 10:42. FINDINGS: Right: Thyroid lobe measures 4.6 x 1.7 x 1.9 cm, and is homogeneous in echotexture. Left: Thyroid lobe measures 5.8 x 2.1 x 2.1 cm, and is homogenous in echotexture. Isthmus: 2 mm thick. Nodule number: 1 Location: Right superior pole Size: 0.9 cm. Previously 1.0 centimeter Composition: Solid Echogenicity: Hypoechoic Shape: wider than tall. Margins: Smooth Echogenic foci: Punctate and macro calcifications Total points: 8 ACR TI-RADS category: Highly suspicious Nodule number: 2 Location: Right inferior Size: 0.8 cm. Previously 0.6 Composition: Solid Echogenicity: Hypoechoic Shape: wider than tall. Margins: Smooth Echogenic foci: None Total points: 4 ACR TI-RADS category: Moderately suspicious Nodule number: 3 Location: Left midpole Size: 1.7 cm. Composition: Cystic ACR TI-RADS category: Benign Nodule number: 4 Location: Left midpole Size: 1.1 cm. Previously 0.8 Composition: Mixed cystic and solid Echogenicity: Hypoechoic Shape: wider than tall. Margins: Smooth Echogenic foci: None Total points: 3 ACR TI-RADS category: Mild suspicion pattern. IMPRESSION: Similar bilateral thyroid nodules, which do not meet size criteria for biopsy. Continued annual follow-up is recommended given the highly suspicious nodule in the right superior pole. ACR TI-RADS definitions and recommendations: TI-RADS 1 (benign): 0 points. FNA not needed. TI-RADS 2 (not suspicious): 2 points. FNA not needed. TI-RADS 3 (mildly suspicious): 3 points. * FNA if 2.5 cm or larger, follow up if 1.5 cm or larger (at 1, 3, and 5 years). TI-RADS 4 (moderately suspicious): 4-6 points. * FNA if 1.5 cm or larger, follow up if 1 cm or larger (at 1, 2, 3, and 5 years). TI-RADS 5 (highly suspicious): 7 points or more. * FNA if 1 cm or larger, follow up if 0.5 cm or larger (every year for 5 years). Dictated by: Min Barth M.D. on 10/28/2022 at 16:05 Approved by: Min Barth M.D. on 10/28/2022 at 16:09
--- NOTE | 2022-10-28 12:59 | DI.MG.S_ITS ---
BILATERAL DIGITAL SCREENING MAMMOGRAM 3D/2D WITH CAD POST LUMPECTOMY: 10/28/2022 CLINICAL: Routine screening. Breast cancer. Comparison is made to exams dated: 10/08/2021 mammogram, 08/02/2020 mammogram, and 02/16/2020 mammogram - [facility]. Both breasts are extremely dense, which lowers the sensitivity of mammography (category d />75% glandular tissue). Current study was also evaluated with a Computer Aided Detection (CAD) system. There are benign calcifications in the right breast. There also are benign post operative findings in the right breast. No significant masses, calcifications, or other findings are seen in either breast. There has been no significant interval change. IMPRESSION: BENIGN There is no mammographic evidence of malignancy. A 1 year screening mammogram is recommended. This exam was interpreted at Station ID: [id number]. NOTE: For mammograms, a report in lay terms will be sent to the patient. Approximately 15% of breast malignancies will not be visualized mammographically. In the management of a palpable breast mass, a negative mammogram must not discourage biopsy of a clinically suspicious lesion. Electronically Signed By: Evelyn horton/kari:10/29/2022 14:21:14 copy to: Mendez [place] copy to: CHINO HOFFMANN letter sent: Normal Exam ACR BI-RADS Category 2: Benign Finding(s) [id number]
== END ==
PROVIDERS: PCP Internal Medicine; Referring Provider Internal Medicine Hematology & Oncology; Visit Provider Internal Medicine Hematology & Oncology
DX: Z12.31 Encounter for screening mammogram for malignant neoplasm of breast (principal); C50.911 Malignant neoplasm of unspecified site of right female breast; E04.2 Nontoxic multinodular goiter; M81.0 Age-related osteoporosis without current pathological fracture
CPT/HCPCS: 76536; 77063; 77067

== ENCOUNTER → 2022-11-27 08:21 | Outpatient (CLI) | payer OTHER, SELFPAY ==
[2022-11-27 09:03] LABS: Add Manual Diff / Slide Review NO; Basophils Absolute Auto 100 /uL (0-100); Basophils Percent Auto 1.1 % (0-2); Eosinophils Absolute Auto 100 /uL (0-450); Eosinophils Percent Auto 1.9 % (2-4); Hematocrit 39.4 % (36-46); Hemoglobin 13.6 g/dL (12.0-16.0); Lymphocytes Absolute Auto 1400 /uL (1100-4500); Lymphocytes Percent Auto 27.5 % (25-40); Mean Corpuscular HGB Conc 34.4 % (30-36); Mean Corpuscular Volume 81.6 fL (80-100); Monocytes Absolute Auto 400 /uL (0-900); Monocytes Percent Auto 8.7 % (3-14); Neutrophils Absolute Auto 3100 /uL (1500-7000); Neutrophils Percent Auto 60.8 % (50-75); Platelet Count 407 X10^3/uL (150-400); Red Blood Cell Count 4.83 X10^6/uL (4.0-5.2); Red Cell Distribution Width 14.1 % (11.6-14.8)
[2022-11-27 09:18] LABS: BUN Creatinine Ratio 26.5 (6-22); Blood Urea Nitrogen 18 mg/dL (7-17); Calcium 9.4 mg/dL (8.4-10.2); Estimated Glomerular Filt Rate > 60 mL/min (>60)
[2022-11-27 09:19] LABS: Alanine Aminotransferase 26 IU/L (<35); Albumin 4.3 g/dL (3.5-5.0); Albumin Globulin Ratio 1.7 (1.0-2.8); Alkaline Phosphatase 72 U/L (38-126); Aspartate Aminotransferase 27 IU/L (14-36); BUN Creatinine Ratio 26.1 (6-22); Bilirubin Total 0.5 mg/dL (0.2-1.3); Blood Urea Nitrogen 18 mg/dL (7-17); Calcium 9.4 mg/dL (8.4-10.2); Carbon Dioxide 25 mmol/L (22-32); Chloride 103 mmol/L (98-107); Estimated Glomerular Filt Rate > 60 mL/min (>60); Globulin 2.6 g/dL (1.7-4.1); Glucose 94 mg/dL (80-110); HEMOLYSIS < 15 (0-50); Potassium 4.6 mmol/L (3.4-5.1); Sodium 136 mmol/L (137-145); Total Protein 6.9 g/dL (6.3-8.2)
== END ==
PROVIDERS: Internal Medicine Hematology & Oncology; PCP Internal Medicine; Referring Provider Internal Medicine; Visit Provider Internal Medicine
DX: M81.0 Age-related osteoporosis without current pathological fracture (principal); C50.911 Malignant neoplasm of unspecified site of right female breast; F41.9 Anxiety disorder, unspecified
CPT/HCPCS: 36415; 80053; 82310; 82565; 84520; 85025

== ENCOUNTER → 2023-11-24 13:27 | Outpatient (CLI) | payer BC, SELFPAY ==
--- NOTE | 2023-11-24 13:29 | DI.MG.S_ITS ---
BILATERAL DIGITAL SCREENING MAMMOGRAM 3D/2D WITH CAD POST LUMPECTOMY: 11/24/2023 CLINICAL: Routine screening. Personal history of right breast cancer. Comparison is made to exams dated: 10/28/2022 mammogram, 10/08/2021 mammogram, and 08/02/2020 mammogram - [facility]. Both breasts are extremely dense, which lowers the sensitivity of mammography (category d />75% glandular tissue). Current study was also evaluated with a Computer Aided Detection (CAD) system. There are benign calcifications in the right breast. There also are benign post operative findings in the right breast. No significant masses, calcifications, or other findings are seen in either breast. There has been no significant interval change. IMPRESSION: BENIGN There is no mammographic evidence of malignancy. A 1 year screening mammogram is recommended. This exam was interpreted at Station ID: [id number]. NOTE: For mammograms, a report in lay terms will be sent to the patient. Approximately 15% of breast malignancies will not be visualized mammographically. In the management of a palpable breast mass, a negative mammogram must not discourage biopsy of a clinically suspicious lesion. Electronically Signed By: Wallace nunez/kari:11/24/2023 16:02:20 copy to: MIRNA CAMACHO letter sent: Normal Exam ACR BI-RADS Category 2: Benign Finding(s) [id number]
== END ==
LOC: MAMMO 13:28
PROVIDERS: PCP Internal Medicine; Referring Provider Internal Medicine; Visit Provider Internal Medicine
DX: Z12.31 Encounter for screening mammogram for malignant neoplasm of breast (principal); Z85.3 Personal history of malignant neoplasm of breast; R92.343 Mammographic extreme density, bilateral breasts
CPT/HCPCS: 77063; 77067

== ENCOUNTER → 2024-01-06 14:11 | Outpatient (CLI) | payer BC, SELFPAY ==
[2024-01-06 14:42] LABS: Hematocrit 40.1 % (36-46); Hemoglobin 13.4 g/dL (12.0-16.0); Mean Corpuscular HGB Conc 33.5 % (30-36); Mean Corpuscular Hemoglobin 27.8 PG (26-34); Mean Corpuscular Volume 83.2 fL (80-100); Platelet Count 378 X10^3/uL (150-400); Red Blood Cell Count 4.83 X10^6/uL (4.0-5.2); Red Cell Distribution Width 13.8 % (11.6-14.8); White Blood Cell Count 5.2 X10^3/uL (4.5-11.0)
[2024-01-06 16:46] LABS: Alanine Aminotransferase 18 IU/L (<35); Albumin 4.4 g/dL (3.5-5.0); Albumin Globulin Ratio 1.7 (1.0-2.8); Alkaline Phosphatase 62 U/L (38-126); Aspartate Aminotransferase 27 IU/L (14-36); BUN Creatinine Ratio 23.8 (6-22); Bilirubin Total 0.5 mg/dL (0.2-1.3); Blood Urea Nitrogen 20 mg/dL (7-17); Calcium 9.5 mg/dL (8.4-10.2); Carbon Dioxide 26 mmol/L (22-32); Chloride 103 mmol/L (98-107); Cholesterol 203 mg/dL (140-199); Estimated Glomerular Filt Rate > 60 mL/min (>60); Globulin 2.6 g/dL (1.7-4.1); Glucose 91 mg/dL (80-110); HDL Cholesterol 60 mg/dL (40-60); HEMOLYSIS < 15 (0-50); LDL Cholesterol Calculated 112 mg/dL (<100); Potassium 4.9 mmol/L (3.4-5.1); Sodium 135 mmol/L (137-145); Triglycerides 154 mg/dL (35-150)
== END ==
LOC: LAB 14:12
PROVIDERS: PCP Internal Medicine; Referring Provider Internal Medicine; Visit Provider Internal Medicine
DX: M81.0 Age-related osteoporosis without current pathological fracture (principal); E78.2 Mixed hyperlipidemia; C50.911 Malignant neoplasm of unspecified site of right female breast
CPT/HCPCS: 36415; 80053; 80061; 85027

== ENCOUNTER → 2024-06-07 14:18 | Outpatient (CLI) | payer MEDICARE, OTHER, SELFPAY ==
--- NOTE | 2024-06-07 14:21 | DI.US.S_ITS ---
PROCEDURE: US THYROID INDICATIONS: nodule followup TECHNIQUE: Real-time scanning was performed of the thyroid gland, with image documentation. COMPARISON: [facility], US, US THYROID, 10/28/2022, 13:21. FINDINGS: Thyroid: Right lobe measures 4.3 x 1.5 x 1.7 cm. Left lobe measures 5.4 x 1.7 x 2.3 cm. Isthmus is 0.2 cm thick. Echotexture is heterogenous. Nodule number: 1 Location: Right superior pole Size: 0.8 x 0.5 x 0.7 (previously 0.9 x 0.5 x 0.7) cm. Composition: Solid Echogenicity: Isoechoic Shape: wider than tall. Margins: Smooth Echogenic foci: None Total points: 3 ACR TI-RADS category: TR 3-no further follow-up necessary Nodule number: 2 Location: Right mid-inferior pole Size: 0.7 x 0.5 x 0.5 (previously 0.8 x 0.6 x 0.5) cm. Composition: Solid Echogenicity: Hypoechoic Shape: wider than tall. Margins: Smooth Echogenic foci: None Total points: 4 ACR TI-RADS category: TR 4-no further follow-up necessary Nodule number: 3 Unable to identify on this examination Nodule number: 4 (present on examinations dating back to 07/23/2017) Location: Left mid-inferior pole Size: 1.5 x 1.2 x 1.2 (previously 1.1 x 0.8 x 0.9) cm. Composition: Mixed solid and cystic Echogenicity: Hypoechoic Shape: wider than tall. Margins: Smooth Echogenic foci: None Total points: 3 ACR TI-RADS category: TR 3 Nodule number: 5 Location: Left lateral pole Size: 1.9 x 1.1 x 0.9 cm. Composition: Solid Echogenicity: Isoechoic Shape: wider than tall. Margins: Smooth Echogenic foci: None Total points: 3 ACR TI-RADS category: TR 3 IMPRESSION: Follow-up ultrasound in 1, 3, and 5 years recommended for nodule #4 and 5 in the left lobe. ACR TI-RADS definitions and recommendations: TI-RADS 1 (benign): 0 points. FNA not needed. TI-RADS 2 (not suspicious): 2 points. FNA not needed. TI-RADS 3: 3 points. * FNA if 2.5 cm or larger, follow up if 1.5 cm or larger (at 1, 3, and 5 years). TI-RADS 4: 4-6 points. * FNA if 1.5 cm or larger, follow up if 1 cm or larger (at 1, 2, 3, and 5 years). TI-RADS 5: 7 points or more. * FNA if 1 cm or larger, follow up if 0.5 cm or larger (every year for 5 years). Dictated by: Alo Yang M.D. on 06/07/2024 at 16:37 Approved by: Alo Yang M.D. on 06/07/2024 at 16:46
== END ==
PROVIDERS: PCP Internal Medicine; Referring Provider Internal Medicine; Visit Provider Internal Medicine
DX: E04.2 Nontoxic multinodular goiter (principal)
CPT/HCPCS: 76536

== ENCOUNTER → 2024-07-08 12:44 | Outpatient (CLI) | payer MEDICARE, OTHER, SELFPAY ==
[2024-07-08 13:23] LABS: Alanine Aminotransferase 25 IU/L (<35); Albumin 4.8 g/dL (3.5-5.0); Albumin Globulin Ratio 1.9 (1.0-2.8); Alkaline Phosphatase 60 U/L (38-126); Aspartate Aminotransferase 31 IU/L (14-36); BUN Creatinine Ratio 22.7 (6-22); Bilirubin Total 0.5 mg/dL (0.2-1.3); Blood Urea Nitrogen 20 mg/dL (7-17); Calcium 9.3 mg/dL (8.4-10.2); Carbon Dioxide 27 mmol/L (22-32); Chloride 104 mmol/L (98-107); Estimated Glomerular Filt Rate > 60 mL/min (>60); Globulin 2.5 g/dL (1.7-4.1); Glucose 91 mg/dL (80-110); HEMOLYSIS < 15 (0-50); Potassium 4.8 mmol/L (3.4-5.1); Sodium 140 mmol/L (137-145); Total Protein 7.3 g/dL (6.3-8.2)
== END ==
PROVIDERS: PCP Internal Medicine; Referring Provider Internal Medicine; Visit Provider Internal Medicine
DX: M81.0 Age-related osteoporosis without current pathological fracture (principal); E78.2 Mixed hyperlipidemia
CPT/HCPCS: 36415; 80053

== ENCOUNTER → 2025-01-13 15:17 | Outpatient (CLI) | payer MEDICARE, OTHER, SELFPAY ==
--- NOTE | 2025-01-13 15:18 | DI.MG.S_ITS ---
MM screening mammo BI: 01/13/2025. BI-RADS: 2 CLINICAL: 64-year old female for bilateral screening mammogram. No Tyrer-Cuzick risk score calculation due to the patient's personal history of breast cancer. Patient reports a history of right breast carcinoma diagnosed at age 56. Status-post right lumpectomy with chemotherapy. PRIOR EXAMS 11/24/2023, 10/28/2022, 11/12/2021, 10/08/2021. MAMMOGRAPHY TECHNIQUE: 2D and 3D (tomosynthesis) digital mammographic views obtained, with additional images as needed for full coverage. Current study was also evaluated with a Computer Aided Detection (CAD) system. DENSITY C. The breasts are heterogeneously dense, which may obscure small masses. MAMMOGRAPHY FINDINGS Right: Benign-appearing post-surgical changes noted on the right. There are no suspicious masses, calcifications, or other findings in the breast. Left: No suspicious mass, asymmetry, microcalcification, or other abnormality seen. IMPRESSION: Right * No evidence of malignancy with benign findings. Left * No evidence of malignancy. RECOMMENDATIONS Bilateral * Annual screening mammography. OVERALL ASSESSMENT CATEGORY BI-RADS-2: Benign. The [employer] recommends annual screening mammography beginning at age 40 for women with average risk of breast cancer. ELECTRONICALLY SIGNED: Karissa Reyes M.D. on 01/14/2025 at 10:56:56 PM PT Interpreting Station ID: [id number]
== END ==
LOC: MAMMO 15:18
PROVIDERS: PCP Internal Medicine; Referring Provider Internal Medicine; Visit Provider Internal Medicine
DX: Z12.31 Encounter for screening mammogram for malignant neoplasm of breast (principal); Z80.3 Family history of malignant neoplasm of breast; R92.333 Mammographic heterogeneous density, bilateral breasts
CPT/HCPCS: 77063; 77067

== ENCOUNTER → 2025-01-26 11:45 | Outpatient (CLI) | payer MEDICARE, OTHER, SELFPAY ==
[2025-01-26 13:06] LABS: Blood Urea Nitrogen 19 mg/dL (7-17); Calcium 9.6 mg/dL (8.4-10.2); Carbon Dioxide 26 mmol/L (22-32); Chloride 104 mmol/L (98-107); Cholesterol 208 mg/dL (140-199); Estimated Glomerular Filt Rate > 60 mL/min (>60); Glucose 89 mg/dL (70-99); HDL Cholesterol 59 mg/dL (40-60); HEMOLYSIS < 15 (0-50); Potassium 4.8 mmol/L (3.4-5.1); Sodium 139 mmol/L (137-145); Triglycerides 140 mg/dL (35-150)
== END ==
LOC: RESP 11:47 → LAB 11:58
PROVIDERS: PCP Internal Medicine; Referring Provider Internal Medicine; Visit Provider Internal Medicine
DX: E78.2 Mixed hyperlipidemia (principal)
CPT/HCPCS: 36415; 80048; 80061; 84450

== ENCOUNTER → 2025-02-02 11:11 | Outpatient (CLI) | payer MEDICARE, OTHER, SELFPAY ==
--- NOTE | 2025-02-02 11:13 | DI.RAD.S_ITS ---
PROCEDURE: XR DEXA AXIAL SKELETON INDICATIONS: osteoporosis COMPARISON: [facility], CR, XR DEXA AXIAL SKELETON, 10/08/2021, 11:13. FINDINGS: Lumbar Spine: Bone mineral density is 0.922 g/cm2, T score -1.1, and 5.3%, denotes significance at 95% confidence level, LSC is 0.022 g/cm2. Left Femoral Neck: Bone mineral density is 0.608 g/cm2, T score -2.2. Left Hip: Bone mineral density 0.746 g/cm2, T score -1.6, no significant change. Fracture Risk Calculation (when applicable): 10-year fracture risk of a major osteoporotic fracture 18 percent and of a hip fracture 3.2 percent. Fracture probability calculated for nontreated patient. Fracture probability maybe lower if the patient has received treatment. (T score greater or equal to -1.0 to: NORMAL) (T score from -1.1 to -2.4: OSTEOPENIA) (T score less than or equal to -2.5: OSTEOPOROSIS) IMPRESSION: Lumbar spine and left hip indicate osteopenia. See below for recommended guidelines. Follow-up guidelines as follows: Osteoporosis: Consider a repeat DEXA and Vertebral Fracture Assessment (VFA) exam in 2 years or sooner if medically necessary, to reassess this patient's status. Osteopenia: Consider a repeat DEXA in 2-3 years to reassess this patient's status, or if there is a new clinical indication. Normal: Consider a repeat DEXA in 5 years or sooner, or if there is a new clinical indication. All treatment decisions require clinical judgment and consideration of individual patient factors, including patient preferences, comorbidities, previous drug use, risk factors not captured in the FRAX model (e.g., frailty, falls, vitamin D deficiency, increased bone turnover, interval significant decline in bone density ) and possible under- or over-estimation of fracture risk by FRAX. In addition, the NOF Guide recommends that FDA-approved medical therapies be considered in postmenopausal women and men age >= 50 years with a: * Hip or vertebral (clinical or morphometric) fracture * T-score of <=-2.5 at the spine or hip * Ten-year fracture probability by FRAX of >= 3% for hip fracture or >=20% for major osteoporotic fracture. Dictated by: Sendy Richter RRA Interpreted: James Coronado MD on 02/02/2025 at 14:06 Transcribed by: GUTIERREZ on 02/02/2025 at 14:07 Approved by: James Coronado M.D. on 02/03/2025 at 8:54
== END ==
LOC: RAD 11:12
PROVIDERS: PCP Internal Medicine; Referring Provider Internal Medicine; Visit Provider Internal Medicine
DX: M81.0 Age-related osteoporosis without current pathological fracture (principal)
CPT/HCPCS: 77080